=== PATIENT | female | born 1970 | race American Indian/Alaskan Native ===

== ENCOUNTER 2018-06-07 03:58 | Inpatient (IN) | payer OTHER, SELFPAY ==
[2018-06-07 04:49] LABS: Basophils % (Auto) 0.3 % (0.0-1.8); Eosinophils % (Auto) 0.1 % (0.0-4.3); Hematocrit 35.5 % (30.3-42.9); Hemoglobin 11.5 gm/dl (10.1-14.3); Lymphocytes # (Auto) 1.9 K/mm3 (1.2-5.4); Mean Corpuscular HGB Conc 32 % (30-34); Mean Corpuscular Volume 79 fl (79-97); Monocytes # (Auto) 0.5 K/mm3 (0.0-0.8); Monocytes % (Auto) 3.9 % (0.0-7.3); Platelet Count 221 K/mm3 (140-440); Red Blood Count 4.51 M/mm3 (3.65-5.03); Red Cell Distribution Width 13.6 % (13.2-15.2)
[2018-06-07 05:09] LABS: Alanine Aminotransferase 15 units/L (7-56); BUN/Creatinine Ratio 13; Blood Urea Nitrogen 9 mg/dL (7-17); Calcium 9.1 mg/dL (8.4-10.2); Hemolysis Index 3
[2018-06-07 05:46] LABS: Bilirubin,Urine NEG (Negative); Blood,Urine NEG (Negative); Color,Urine Yellow (Yellow); Protein,Urine <15 mg/dL mg/dL (Negative); Urobilinogen,Urine < 2.0 mg/dL (<2.0)
[2018-06-07] MEDS ORDERED: NACL 0.9% 1000 ML 1,000 ML IV ONE (06:26)
[2018-06-07] MEDS ORDERED: TORADOL IM ONE (06:26)
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
[2018-06-07] MEDS ORDERED: DILAUDID IV ONE (08:28)
--- NOTE | 2018-06-07 08:41 | Cat Scan Report ---
FINAL REPORT EXAM: CT ABDOMEN PELVIS W CON HISTORY: abd pain TECHNIQUE: CT abdomen and pelvis performed. Images extend from diaphragm to pubic symphysis. IV co ntrast was administered. Axial images and coronal and sagittal reformatted images were obtained. PRIORS: None. FINDINGS: The visualized liver, spleen, pancreas, adrenal glands and kidneys demonstrate no significant abnorma lities. There is no abdominal aortic aneurysm. There is no evidence of intestinal obstruction. The appendix is fluid containing and mildly enlarged. It measures 9 mm diameter. Although I cannot c onfirm periappendiceal inflammation, appearance is concerning for appendicitis. There are no abnormal fluid collections seen. There is no free intraperitoneal air. The bladder is unremarkable. There is no abnormal pelvic mass or fluid collections seen. IMPRESSION: Fluid containing mildly enlarged appendix measuring 9 mm. This is concerning for acute appendicitis.
[2018-06-07] MEDS ORDERED: ZOSYN/NS 4.5GM/100ML 4.5 GM/100 ML VIAL IV ONE ×2 (10:00→10:47)
[2018-06-07] MEDS ORDERED: ZOFRAN IV PRN (10:56)
--- NOTE | 2018-06-07 10:57 | History and Physical Report ---
History of Present Illness Date of examination: 06/07/18 Date of admission: 06/07/18 09:19 Chief complaint: Abdominal pains History of present illness: Patient is a 48 yo woman with a history of IDDM on lantus 20u at night, Humalog PEN 10 units with each meal, denies hypertension and Glaucoma drops off medication who presents with sudden onset of severe sharp twisting right lower quadrant abdominal pains that begun on Saturday evening. The pain does not radiate and there is no aggravating or relieving factors. She developed nausea and vomiting. She was at her baseline prior to Saturday. PMH: as hpi PSH: fibroid removed, x 2, buttock/right breast abscess debridement SH: no smoker, no etoh, no drug FH: mother mini stroke, maternal grandmother, cva, paternal uncle with appy, breast cancer of father side ROS: Constitutional: denies: fever ENT: denies: throat or neck pain Respiratory: denies: cough, shortness of breath Cardiovascular: denies: chest pain Endocrine: denies unexplained weight loss or gain Gastrointestinal: denies: abdominal pain, nausea Genitourinary: denies: dysuria Rectal: denies no incontinence, no bleeding, no itching, no discharge Musculoskeletal: denies swelling, myaglia, muscle weakness Skin: denies: rash Neurological: denies: headache Hematological/Lymphatic: denies: easy bleeding or easy bruising Allergic/Immunologic: no urticaria, no allergic rhinitis, no anaphylaxis Psych: denies sadness or hopelessness, SI/HI Medications and Allergies Allergies Allergy/AdvReac Type Severity Reaction Status Date / Time Sulfa (Sulfonamide Allergy Unknown Verified 05/01/18 15:04 Antibiotics) Home Medications Medication Instructions Recorded Confirmed Last Taken Type ALBUTEROL Inhaler(NF) [VENTOLIN 1 puff IH Q4H PRN #1 inha 05/01/18 Unknown Rx Inhaler(NF)] Brompheniramine/Pseudoephed/Dm 5 ml PO Q6H #240 syrup 05/01/18 Unknown Rx [Hqlxcbivpn-Tmpscgsbtmq-Fn Syr] Ketorolac [Toradol] 10 mg PO Q6H PRN #14 tablet 05/01/18 Unknown Rx Insulin Glargine,Hum.rec.anlog 20 units SQ HS 06/07/18 06/07/18 06/06/18 23:00 History [Lantus] Lispro Insulin [Humalog] 10 unit SQ AC 06/07/18 06/07/18 06/06/18 18:00 History Lumigan 2 drop OTIC HS 06/07/18 06/07/18 05/15/18 History Exam - Physical Exam Narrative exam: Gen: WDWN, NAD, Awake, Alert, Orientated HEENT: NCAT, EOMI, PERRL, OP Clear Neck: supple, no adenopathy, no thyromegaly, no JVD CVS/Heart: RRR, normal S1S2, pulses present bilaterally Chest/Lungs: CTA B, Symmetrical chest expansion, good air entry bilaterally GI/Abdomen: soft, right RLL tenderness, hypoactive bs, with guarding or rebound /Bladder: no suprapubic tenderness, no CVA or paraspinal tenderness Extermity/Skin: no c/c/e, no obvious rash MSK: FROM x 4 Neuro: CN 2-12 grossly intact, no new focal deficits Psych: calm - Constitutional Vitals: Temp Pulse Resp BP Pulse Ox 98.3 F 95 H 18 165/100 100 06/07/18 08:58 06/07/18 08:58 06/07/18 08:58 06/07/18 08:58 06/07/18 08:58 Results - Labs CBC & Chem 7: 06/07/18 04:31 06/07/18 04:31 Labs: Abnormal lab results 06/07/18 06/07/18 06/07/18 Range/Units 04:31 04:31 Unknown WBC 13.3 H (4.5-11.0) K/mm3 MCH 26 L (28-32) pg Seg Neutrophils % 81.7 H (40.0-70.0) % Seg Neutrophils # 10.8 H (1.8-7.7) K/mm3 Glucose 257 H (65-100) mg/dL Urine WBC (Auto) 10.0 H (0.0-6.0) /HPF Assessment and Plan Patient is a 48 yo woman with a history of IDDM on lantus 20u at night, Humalog PEN 10 units with each meal, denies hypertension and Glaucoma drops off medication who presents with sudden onset of severe sharp twisting right lower quadrant abdominal pains that begun on Saturday evening. The pain does not radiate and there is no aggravating or relieving factors. She developed nausea and vomiting. She was at her baseline prior to saturday. * CT abd/pelvis with IV contrast IMPRESSION: Fluid containing mildly enlarged appendix measuring 9 mm. This is concerning for acute appendicitis. -Abdominal pains most likely due to Acute Appendicitis: General Surgeon already contacted, nPO, ivf -SIRS with organ dysfunction: treat empirically with abx -IDDM: use ssi -Elevated BP which appears to be Accelerated hypertension without prior diagnosis of hypertension: treat the above and prn latabelol going for surgery CCT 34 minutes
[2018-06-07] MEDS ORDERED: NACL 0.45% 1000 ML 1,000 ML IV SCH (11:00)
[2018-06-07] MEDS: DILAUDID IV PRN ×2 (11:01→18:39)
[2018-06-07] MEDS ORDERED: XYLOCAINE 1% 20 mL ONE (12:54)
[2018-06-07] MEDS ORDERED: MARCAINE 0.5% INFILTRATI ONE ×2 (12:55→13:50)
--- NOTE | 2018-06-07 13:03 | Consultation ---
History of Present Illness Consult date: 06/07/18 Reason for consult: abdominal pain Chief complaint: abdominal pain - History of present illness History of present illness: 48 yo F with hx of DM, csection x2 presents to ER with c/o 1 day of abdominal pa in, twisting sensation in the RLQ without radiation. She has never had pain like this before. It started suddenly a few hours after dinner. This was associated with vomiting (nb/nb). No f/c, cp, sob. No sick contacts. Past History Past Medical History: diabetes, other (asthma) Past Surgical History: (x2), Other (fibroid surgery) Social history: no significant social history Family history: no significant family history Medications and Allergies Allergies Allergy/AdvReac Type Severity Reaction Status Date / Time Sulfa (Sulfonamide Allergy Unknown Verified 05/01/18 15:04 Antibiotics) Home Medications Medication Instructions Recorded Confirmed Last Taken Type ALBUTEROL Inhaler(NF) [VENTOLIN 1 puff IH Q4H PRN #1 inha 05/01/18 Unknown Rx Inhaler(NF)] Brompheniramine/Pseudoephed/Dm 5 ml PO Q6H #240 syrup 05/01/18 Unknown Rx [Cuxwjiiiyg-Dnnmubqihrh-Ox Syr] Ketorolac [Toradol] 10 mg PO Q6H PRN #14 tablet 05/01/18 Unknown Rx Insulin Glargine,Hum.rec.anlog 20 units SQ HS 06/07/18 06/07/18 06/06/18 23:00 History [Lantus] Lispro Insulin [Humalog] 10 unit SQ AC 06/07/18 06/07/18 06/06/18 18:00 History Lumigan 2 drop OTIC HS 06/07/18 06/07/18 05/15/18 History Active Meds: Active Medications Diphenhydramine HCl (Benadryl) 25 mg IV Q6H PRN PRN Reason: Itching Hydromorphone HCl (Dilaudid) 1 mg IV Q4H PRN PRN Reason: Pain , Severe (7-10) Last Admin: 06/07/18 11:01 Dose: 1 mg Documented by: Sodium Chloride (Nacl 0.45% 1000 Ml) 1,000 mls @ 100 mls/hr IV DIRECT TALI Last Admin: 06/07/18 11:59 Dose: 100 mls/hr Documented by: Ondansetron HCl (Zofran) 4 mg IV Q4H PRN PRN Reason: Nausea And Vomiting Pantoprazole Sodium (Protonix) 40 mg IV QDAY TALI Review of Systems All systems: negative (10 PT ROS performed and negative except for that listed in HPI) Exam Vital Signs Temp Pulse Resp BP Pulse Ox 98.8 F 114 H 16 166/100 99 06/07/18 04:03 06/07/18 04:03 06/07/18 04:03 06/07/18 04:03 06/07/18 04:03 Narrative exam: Gen: AAOx3. NAD ENT: no scleral icterus or conjunctival pallor CV: s1, s2+ resp: even and unlabored Abd: soft, ND, + RLQ TTP. + rebound. no guarding or rigidity. well healed lower midline scar Ext: no c/c/e Results - Labs 06/07/18 04:31 06/07/18 04:31 Abnormal lab results 06/07/18 06/07/18 06/07/18 Range/Units 04:31 04:31 Unknown WBC 13.3 H (4.5-11.0) K/mm3 MCH 26 L (28-32) pg Seg Neutrophils % 81.7 H (40.0-70.0) % Seg Neutrophils # 10.8 H (1.8-7.7) K/mm3 Glucose 257 H (65-100) mg/dL Urine WBC (Auto) 10.0 H (0.0-6.0) /HPF Diabetes panel 06/07/18 Range/Units 04:31 Sodium 138 (137-145) mmol/L Potassium 3.9 (3.6-5.0) mmol/L Chloride 101.0 (98-107) mmol/L Carbon Dioxide 28 (22-30) mmol/L BUN 9 (7-17) mg/dL Creatinine 0.7 (0.7-1.2) mg/dL Glucose 257 H (65-100) mg/dL Calcium 9.1 (8.4-10.2) mg/dL AST 16 (5-40) units/L ALT 15 (7-56) units/L Alkaline Phosphatase 69 (35-129) units/L Total Protein 7.3 (6.3-8.2) g/dL Albumin 4.0 (3.9-5) g/dL Calcium panel 06/07/18 Range/Units 04:31 Calcium 9.1 (8.4-10.2) mg/dL Albumin 4.0 (3.9-5) g/dL Pituitary panel 06/07/18 Range/Units 04:31 Sodium 138 (137-145) mmol/L Potassium 3.9 (3.6-5.0) mmol/L Chloride 101.0 (98-107) mmol/L Carbon Dioxide 28 (22-30) mmol/L BUN 9 (7-17) mg/dL Creatinine 0.7 (0.7-1.2) mg/dL Glucose 257 H (65-100) mg/dL Calcium 9.1 (8.4-10.2) mg/dL Adrenal panel 06/07/18 Range/Units 04:31 Sodium 138 (137-145) mmol/L Potassium 3.9 (3.6-5.0) mmol/L Chloride 101.0 (98-107) mmol/L Carbon Dioxide 28 (22-30) mmol/L BUN 9 (7-17) mg/dL Creatinine 0.7 (0.7-1.2) mg/dL Glucose 257 H (65-100) mg/dL Calcium 9.1 (8.4-10.2) mg/dL Total Bilirubin 0.30 (0.1-1.2) mg/dL AST 16 (5-40) units/L ALT 15 (7-56) units/L Alkaline Phosphatase 69 (35-129) units/L Total Protein 7.3 (6.3-8.2) g/dL Albumin 4.0 (3.9-5) g/dL - Imaging CT scan - abdomen: report reviewed, image reviewed CT scan - pelvis: report reviewed, image reviewed Assessment and Plan 48 yo F with acute appendicitis Plan: 1. NPO 2. IVF 3. IV abx 4. prn pain and nausea control 5. DVT ppx 6. Recommend appendectomy - discussed all risks, benefits, and alternatives to surgery with patient and consent obtained. All questions answered. Patient for Laparoscopic appendecomy, possible open today. D/W Dr. Rose.
[2018-06-07] MEDS ORDERED: DILAUDID ONE (13:26)
[2018-06-07] MEDS ORDERED: ZEMURON IV ONE (13:26)
[2018-06-07] MEDS ORDERED: XYLOCAINE MPF 2% ONE (13:26)
[2018-06-07] MEDS ORDERED: QUELICIN ONE (13:26)
[2018-06-07] MEDS ORDERED: DIPRIVAN 10 MG/ML IV ONE (13:27)
[2018-06-07] MEDS ORDERED: ZOFRAN ONE (13:49)
[2018-06-07] MEDS ORDERED: BLOXIVERZ ONE (13:49)
[2018-06-07] MEDS ORDERED: ROBINUL ONE (13:49)
[2018-06-07] MEDS ORDERED: XYLOCAINE 1% 20 mL INFILTRATI ONE (13:50)
--- NOTE | 2018-06-07 14:29 | Post Operative Note ---
Date of procedure: 06/07/18 Pre-op diagnosis: acute appendicitis Post-op diagnosis: same Findings: dilated appendix. adhesions from small bowel to anterior abdominal wall in region of the patient's lower midline scar. no obstruction. Procedure: laparoscopic appendectomy Anesthesia: MARYJANEA, local Surgeon: MAMADOU GRISSOM Estimated blood loss: minimal Pathology: list (appendix) Specimen disposition: to lab Condition: stable Disposition: PACU
[2018-06-07] MEDS ORDERED: DILAUDID IV PRN (14:39)
--- NOTE | 2018-06-07 14:56 | Post Anesthesia Evaluation ---
- Post Anesthesia Evaluation Patient Participated: Yes Airway Patent: Yes Stable Respiratory Function: Yes Temp > 96.8F: Yes Pain Manageable: Yes Adequeate Hydration: Yes Anesthesia Complications: No
[2018-06-07] MEDS ORDERED: NACL 0.45% 1000 ML 1,000 ML IV ONE (15:02)
[2018-06-07] MEDS: TORADOL IV SCH ×2 (16:46→23:06)
[2018-06-07] MEDS: BENADRYL IV PRN (17:26)
[2018-06-08] MEDS: TORADOL IV SCH ×2 (06:23→15:00)
[2018-06-08] MEDS: PERCOCET 5/325 PO PRN ×2 (06:36→13:40)
[2018-06-08] MEDS: BENADRYL IV PRN (07:36)
[2018-06-08] MEDS ORDERED: PROTONIX IV SCH (10:00)
--- NOTE | 2018-06-08 10:37 | Discharge Summary ---
Providers - Providers Date of Admission: 06/07/18 09:19 Date of discharge: 06/08/18 Attending physician: GAYE NEFF 06/07/18 08:56 Consult to Physician [CONS] Routine Comment: Consulting Provider: MAMADOU GRISSOM Physician Instructions: Reason For Exam: Acute appendicitis Primary care physician: JAILENE HUTTON Hospitalization Condition: Stable Hospital course: Patient is a 48 yo woman with a history of IDDM on lantus 20u at night, Humalog PEN 10 units with each meal, denies hypertension and Glaucoma drops off medication who presents with sudden onset of severe sharp twisting right lower quadrant abdominal pains that begun on Saturday evening. The pain does not radiate and there is no aggravating or relieving factors. She developed nausea and vomiting. She was at her baseline prior to saturday. * CT abd/pelvis with IV contrast IMPRESSION: Fluid containing mildly enlarged appendix measuring 9 mm. This is concerning for acute appendicitis. Acute Appendicitis s/p Appendectomy SIRS with organ dysfunction, poa IDDM: use ssi Elevated BP w/o d/o hypertension, accelerated BP due to pain Disposition: DC TO HOME OR SELFCARE Time spent for discharge: 35 minutes Core Measure Documentation - Palliative Care Palliative Care/ Comfort Measures: Not Applicable - Core Measures Any of the following diagnoses?: none - VTE Discharge Requirements Deep Vein Thrombosis/Pulmonary Embolism Present on Admission: No Has pt received <5 days of overlap therapy or INR<2.0: No Anticoagulant overlap therapy prescribed at discharge: No Contraindication No Overlap Therapy order at DC: Not Indicated Exam - Physical Exam Narrative exam: Gen: WDWN, NAD, Awake, Alert, Orientated HEENT: NCAT, EOMI, PERRL, OP Clear Neck: supple, no adenopathy, no thyromegaly, no JVD CVS/Heart: RRR, normal S1S2, pulses present bilaterally Chest/Lungs: CTA B, Symmetrical chest expansion, good air entry bilaterally GI/Abdomen: soft, right RLL tenderness, hypoactive bs, with guarding or rebound /Bladder: no suprapubic tenderness, no CVA or paraspinal tenderness Extermity/Skin: no c/c/e, no obvious rash MSK: FROM x 4 Neuro: CN 2-12 grossly intact, no new focal deficits Psych: calm - Constitutional Vitals: Temp Pulse Resp BP Pulse Ox 98.1 F 103 H 20 149/81 98 02/03/19 08:30 06/08/18 08:30 06/08/18 08:30 06/08/18 08:30 06/08/18 08:30 Plan Activity: other (no strenous activity unless cleared by Surgeon) Diet: advance as tolerated Special Instructions: record blood sugar diary Follow up with: JAILENE HUTTON MD [Primary Care Provider] - 3-5 Days MAMADOU GRISSOM DO [Staff Physician] - 7 Days Prescriptions: Bisacodyl [Dulcolax suppos] 10 mg VT QDAY PRN #4 supp.rect PRN Reason: Constipation Lispro Insulin [Humalog] 1 unit SQ AC PRN #100 units PRN Reason: Hyperglycemia Lumigan 2 drop OU HS #1 oxyCODONE /ACETAMINOPHEN [Percocet 5/325 mg] 1 tab PO Q6H PRN #10 tablet PRN Reason: Pain , Severe (7-10)
[2018-06-08 13:22] VITALS: BP 149/81
--- NOTE | 2018-06-08 14:37 | Progress Note ---
Assessment and Plan 48 yo F s/p laparoscopic appendectomy, POD 1 Plan: 1. reg diet 2. dc IVF 3. Prn PO pain control 4. IS 5. OOB/ambulate 6. ok to dc home. Pt to follow up in clinic in 2 weeks. Printed dc instructions left on chart. Thank you, please call with questions. Subjective Date of service: 06/08/18 Narrative: Pt seen and examined. No complaints. Feels much better. Tolerating diet, no n/v. No f/c. Has been OOB and urinating on her own Objective Vital Signs - 12hr 06/08/18 06/08/18 06/08/18 03:38 08:30 13:40 Temperature 98.0 F 98.1 F Pulse Rate 103 H 103 H Respiratory 18 20 20 Rate Blood Pressure 131/75 Blood Pressure 149/81 [Right] O2 Sat by Pulse 97 98 Oximetry - General physical appearance Narrative Exam: Gen: AAOx3. NAD CV: S1, S2+ Resp: even and unlabored Abd: soft, NT, ND. incisions c/d/i Ext: no c/c/e - Labs 06/07/18 04:31 06/07/18 04:31
--- NOTE | 2018-06-09 15:53 | Operative Report ---
PREOPERATIVE DIAGNOSIS: Acute appendicitis. POSTOPERATIVE DIAGNOSIS: Acute appendicitis. FINDINGS: Dilated appendix. Adhesions from small bowel to anterior abdominal wall and region of the patient's lower midline scar. No obstruction. PROCEDURE: Laparoscopic appendectomy. ANESTHESIA: General endotracheal anesthesia, local. SURGEON: Kenia Kapadia DO ESTIMATED BLOOD LOSS: Minimal. PATHOLOGY: Appendix specimen. DISPOSITION: To lab. CONDITION: Stable. DISPOSITION: To PACU. HISTORY OF PRESENT ILLNESS AND INDICATION: The patient is a 48-year-old female, who presented to the hospital with complaints of right lower quadrant abdominal pain x 1 day associated with nausea and vomiting. She was found to have a leukocytosis on labs and acute appendicitis on a CT scan of the abdomen and pelvis. Her symptoms as well as the findings of the workup were consistent with appendicitis. An appendectomy was recommended. All risks, benefits and alternatives to surgery were discussed with the patient. Consent obtained. All questions were answered. The patient was kept n.p.o. and placed on IV fluids and started on IV Zosyn. PROCEDURE IN DETAIL: The patient was identified in the preoperative area and taken back to the operating room and placed on the operating table in supine position. After anesthesia was induced, a Lerma catheter was sterilely placed by the circulating nurse. A left upper quadrant isabella incision was made using an 11 blade through which a Veress needle was inserted. Despite repeated attempts at insufflating the abdomen, the pressures remained high. Therefore, it was decided to make a small incision above the umbilicus away from the patient's prior lower midline incision. A local anesthetic was infiltrated into all skin incision sites prior to incision. A 5 mm supraumbilical incision was made using the #11 blade. Through this, a Veress needle was inserted and the Veress needle position confirmed using the saline drop test. Abdomen was insufflated to 15 mmHg. The Veress needle was then removed and a 5 mm Optiview trocar was placed through this incision under direct visualization. The abdomen was inspected and there was no underlying injury to any of the abdominal structures. The left upper quadrant was visualized and there was no injury from prior attempts at Veress needle insertion. The right lower quadrant was visualized and it did appear there were adhesions from small bowel to the anterior abdominal wall at the site of the patient's prior lower midline incision. The bowel was unremarkable and there was no obstruction or twisting seen. The patient was tilted to the left and placed in Trendelenburg position. An additional left lower abdominal trocar to the left of the midline was placed under direct visualization and a 12 mm left midabdominal trocar placed under direct visualization. The cecum was grasped and lifted and retracted medially and cephalad in order to identify the appendix. The appendix was seen and grasped. It did appear dilated. There was no free fluid in the abdomen. No evidence of perforation. The mesentery was then ligated using a Harmonic scalpel. Once the base of the appendix was reached, it was transected using an Friedens flex 45 mm white load stapler. The appendix was placed into an EndoCatch bag and removed from the abdomen via the 12 mm port. The staple line and mesentery were then inspected and there was no bleeding identified. The patient was placed into supine position and the 12 mm port fascia was closed using interrupted 0 Vicryl sutures using the Gilberto-Karlo device. The remaining ports were removed under direct visulation. The skin incisions were once again infiltrated with local anesthetic and the skin was closed with 4-0 Monocryl subcuticular stitches and skin glue. At the end of the case, all sponge, instrument, sharp counts were correct x 2. The Lerma catheter was removed and the patient was awoken from anesthesia and extubated. She was taken to PACU in stable condition. JOB# [id number] CECILIA/HARI ZURITA
== END 2018-06-08 16:15 | disposition home or self-care (01) | DRG 341 ==
LOC: ED 03:58 → 3B-SURG 09:19
PROVIDERS: ADMIT Internal Medicine; ATTEND Internal Medicine
PROC: 0DTJ4ZZ Resection of Appendix, Percutaneous Endoscopic Approach (ICD-10-PCS; principal; 2018-06-07)
DX: K35.80 Unspecified acute appendicitis (principal); R65.11 Systemic inflammatory response syndrome (SIRS) of non-infectious origin with acute organ dysfunction; E11.9 Type 2 diabetes mellitus without complications; K38.8 Other specified diseases of appendix; K66.0 Peritoneal adhesions (postprocedural) (postinfection); R03.0 Elevated blood-pressure reading, without diagnosis of hypertension; Z79.4 Long term (current) use of insulin; Z86.73 Personal history of transient ischemic attack (TIA), and cerebral infarction without residual deficits; Z80.3 Family history of malignant neoplasm of breast; Z88.2 Allergy status to sulfonamides; Z79.899 Other long term (current) drug therapy
CPT/HCPCS: 36415; 74177; 80053; 81001; 82962; 84703; 85025; 88304; 88341; 88342; G0378; J0330; J1170; J1200; J1885; J2405; J2543; J2704; J2710; J7030; Q9967

== ENCOUNTER 2018-06-13 19:49 | Emergency (ER) | payer OTHER, SELFPAY ==
[2018-06-13] MEDS ORDERED: MORPHINE IV ONE (20:51)
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
[2018-06-13] MEDS ORDERED: ZOFRAN IV ONE (20:52)
[2018-06-13] MEDS ORDERED: NACL 0.9% 1000 ML 1,000 ML IV ONE (20:52)
[2018-06-13 21:18] LABS: Basophils # (Auto) 0.1 K/mm3 (0.0-0.1); Eosinophils # (Auto) 0.1 K/mm3 (0.0-0.4); Hematocrit 33.8 % (30.3-42.9); Hemoglobin 11.2 gm/dl (10.1-14.3); Lymphocytes # (Auto) 2.1 K/mm3 (1.2-5.4); Lymphocytes % (Auto) 34.3 % (13.4-35.0); Mean Corpuscular HGB Conc 33 % (30-34); Mean Corpuscular Volume 78 fl (79-97); Monocytes # (Auto) 0.4 K/mm3 (0.0-0.8); Monocytes % (Auto) 6.4 % (0.0-7.3); Platelet Count 262 K/mm3 (140-440); Red Blood Count 4.33 M/mm3 (3.65-5.03); Red Cell Distribution Width 13.6 % (13.2-15.2)
[2018-06-13 21:36] LABS: Alanine Aminotransferase 9 units/L (7-56); Albumin 3.8 g/dL (3.9-5); BUN/Creatinine Ratio 10; Blood Urea Nitrogen 7 mg/dL (7-17); Calcium 8.8 mg/dL (8.4-10.2); Hemolysis Index 5
[2018-06-13 23:02] LABS: Bilirubin,Urine NEG (Negative); Blood,Urine NEG (Negative); Color,Urine Yellow (Yellow); Mucus,Urine 1+ /HPF; Protein,Urine <15 mg/dL mg/dL (Negative); Urobilinogen,Urine < 2.0 mg/dL (<2.0)
--- NOTE | 2018-06-13 23:32 | Cat Scan Report ---
FINAL REPORT PROCEDURE: CT ABDOMEN PELVIS W CON TECHNIQUE: Computerized axial tomography of the abdomen and pelvis was performed after the IV inject ion of iodinated nonionic contrast. HISTORY: abd pain, recent appendectomy COMPARISON: Prior CT scan 06/07/2018 FINDINGS: Lower Lung starks: No focal abnormality seen. Upper Abdomen: There is decreased density anteriorly in the left lobe of the liver adjacent to the fa lciform ligament which is a common area for focal fatty infiltration. The liver is otherwise unremark able. The gallbladder showed no abnormalities. The adrenal glands, and the pancreas show no abnormali ties. There is a 1.5 centimeter low-density lesion adjacent to the splenic hilum suggesting a small s plenic cyst or splenic hemangioma. Spleen is otherwise unremarkable. Kidneys, Ureters and Urinary bladder: No abnormalities are seen per Retroperitoneum: Abdominal aorta appears normal. Nonspecific subcentimeter lymph nodes are seen in the retroperitoneum. No pathologically enlarged lym ph nodes are identified. Bowel: Postsurgical changes are seen adjacent to the cecum from recent appendectomy. No abscess is se en in this area. Bowel loops show no abnormalities. No evidence of bowel obstruction ascites or free intraperitoneal gas. Reproductive organs: Uterus and left adnexa are unremarkable. Cystic changes visualized in the right ovary. There appear to be least 2 cysts measuring up to 2.2 centimeters suggesting maturing follicles . There may be trace amount of fluid adjacent to the right ovary. Other: No acute bony abnormalities are identified. IMPRESSION: Postsurgical changes right lower quadrant. No abscess is seen. Cystic change seen right ovary may represent maturing follicles measuring up to 2.2 centimeters. Ther e may be trace amount of fluid adjacent to the right ovary. Small splenic cyst or hemangioma visualized. Focal fatty infiltration suspected in the left lobe of the liver anteriorly as described.
[2018-06-14 00:12] VITALS: BP 138/74
== END 2018-06-14 00:11 | disposition home or self-care (01) ==
LOC: ED 19:49
DX: R10.9 Unspecified abdominal pain (principal); M54.5 Low back pain; E11.9 Type 2 diabetes mellitus without complications; Z90.49 Acquired absence of other specified parts of digestive tract; Z88.2 Allergy status to sulfonamides
CPT/HCPCS: 36415; 74177; 80053; 81001; 83690; 85025; 96374; 96375; 99284; J2270; J2405; J7030; Q9967

== ENCOUNTER 2018-08-11 08:55 | Emergency (ER) | payer OTHER, SELFPAY ==
[2018-08-11 09:25] LABS: Basophils % (Auto) 0.8 % (0.0-1.8); Eosinophils % (Auto) 0.7 % (0.0-4.3); Hematocrit 35.9 % (30.3-42.9); Hemoglobin 11.9 gm/dl (10.1-14.3); Lymphocytes # (Auto) 1.6 K/mm3 (1.2-5.4); Lymphocytes % (Auto) 35.4 % (13.4-35.0); Mean Corpuscular HGB Conc 33 % (30-34); Mean Corpuscular Volume 80 fl (79-97); Monocytes # (Auto) 0.3 K/mm3 (0.0-0.8); Monocytes % (Auto) 7.1 % (0.0-7.3); Platelet Count 200 K/mm3 (140-440); Red Blood Count 4.51 M/mm3 (3.65-5.03)
[2018-08-11 09:41] LABS: Bacteria,Urine 1+ /HPF (Negative); Bilirubin,Urine NEG (Negative); Blood,Urine NEG (Negative); Color,Urine Yellow (Yellow); Mucus,Urine 1+ /HPF; Protein,Urine <15 mg/dL mg/dL (Negative); Urobilinogen,Urine < 2.0 mg/dL (<2.0)
[2018-08-11 09:44] LABS: WBC,Urine > 182.0 /HPF (0.0-6.0)
[2018-08-11 09:46] LABS: Alanine Aminotransferase 15 units/L (7-56); Albumin 3.9 g/dL (3.9-5); BUN/Creatinine Ratio 19; Blood Urea Nitrogen 13 mg/dL (7-17); Calcium 8.7 mg/dL (8.4-10.2); Hemolysis Index 8
[2018-08-11] MEDS ORDERED: ZOFRAN IV ONE (10:23)
[2018-08-11] MEDS ORDERED: MORPHINE IV ONE (10:23)
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
--- NOTE | 2018-08-11 12:21 | Cat Scan Report ---
CT abdomen and pelvis with and without IV contrast: Recent appendectomy with flank and right abdominal pain. Transverse images are obtained from lower chest to the ischium prior to and following IV contrast administration. Coronal and sagittal reconstructed images are included. Comparison is made to June 13, 2018 examination following. The visualized lung bases are clear. There is a mild fatty appearing changes of the liver near the falciform ligament. There is a small cyst near the hilum of the spleen. The retroperitoneal organs are unremarkable. The abdominal aorta is normal in size and contour. There are surgical clips in the expected region of the appendix. There is minimal dilatation of some bowel loops containing fluid in the low midabdomen. No evidence of free fluid or abdominal mass. No inflammatory changes. These findings are all unchanged compared to prior examination. Sections through the pelvis demonstrate resolution of a right ovarian cyst. The pelvic findings are not otherwise remarkable. There is collapse of the L5-S1 disc with degenerative anterior and posterior spondylosis. Impressions: 1. Interval resolution of right ovarian cyst. 2. Nonspecific mild fluid distention of distal small bowel loops unchanged from prior examination.
[2018-08-11 13:29] VITALS: BP 147/87
== END 2018-08-11 13:30 | disposition home or self-care (01) ==
LOC: ED 08:55
DX: N39.0 Urinary tract infection, site not specified (principal); E11.9 Type 2 diabetes mellitus without complications
CPT/HCPCS: 36415; 74178; 80053; 81001; 85025; 96374; 96375; 99284; J2270; J2405; Q9967